=== PATIENT | male | born 2000 | race Two or more races ===

== ENCOUNTER 2022-11-11 14:29 | Emergency (ER) | payer OTHER ==
[~2022-11-11] VITALS: Ht 167.6 cm; Wt 109.0 kg
[2022-11-11 14:40] VITALS: O2SAT 100
[2022-11-11] MEDS ORDERED: ONDANSETRON 4MG ODT PO ONE (15:00)
[2022-11-11 15:05] LABS: BASOPHILS % 0.3 % (0.0-2.0); EOSINOPHILS % 0.8 % (0.0-5.0); HEMOGLOBIN. 16.1 g/dL (14.0-18.0); LYMPHOCYTES % 14.6 % (20.0-50.0); MEAN CORPUSCULAR HEMOGLOBIN 29.1 pg (28.0-32.0); MEAN CORPUSCULAR VOLUME 85.1 fL (80.0-94.0); NEUTROPHILS % 76.3 % (40.0-76.0); PLATELET 554 x1000/uL (130-400); RED BLOOD CELL COUNT 5.52 mill/uL (4.7-6.1); RED CELL DISTRIBUTION WIDTH 14.5 % (11.6-14.6)
[2022-11-11 15:16] LABS: CHLORIDE 103 mEq/L (98-107)
[2022-11-11 15:24] LABS: D-DIMER < 0.19 mg/L FEU (<0.50); PROTHROMBIN TIME 11.2 sec (9.6-11.0)
[2022-11-11] MEDS ORDERED: AMOX-494 MT (16:48)
[2022-11-11] MEDS ORDERED: ONDANSETRON 4MG ODT PO NR (17:30)
[2022-11-11 17:40] VITALS: BP 126/76; PULSE 80; RESP 20; TEMP 98.4
[2022-11-11 18:10] LABS: CLARITY URINE CLEAR (CLEAR); COLOR URINE YELLOW (YELLOW); KETONES URINE NEGATIVE (NEGATIVE); LEUKOCYTE ESTERASE URINE 1+ (NEGATIVE); NITRITE URINE NEGATIVE (NEGATIVE); OCCULT BLOOD URINE NEGATIVE (NEGATIVE); PH URINE 5.5 (4.5-8.0); PROTEIN URINE NEGATIVE (NEGATIVE); SPECIFIC GRAVITY URINE 1.013 (1.005-1.030); UROBILINOGEN URINE 0.2 E.U./dL (0.2-1.0)
== END 2022-11-11 17:46 | disposition home or self-care (01) ==
LOC: ER 14:29
DX: J18.9 Pneumonia, unspecified organism (principal); R55 Syncope and collapse; F41.9 Anxiety disorder, unspecified
CPT/HCPCS: 99285; 71045; 80053; 81003; 83880; 85025; 85379; 85610; 84484; 36415; 93005; Q0162